=== PATIENT | female | born 1960 | race Caucasian/White ===

== ENCOUNTER 2019-02-06 14:31 | Emergency (ER) | payer MEDICAID, SELFPAY ==
[2019-02-06 14:37] VITALS: BP 133/74; PULSE 92; RESP 18; TEMP 36.8; O2SAT 97; BMI 40.5
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
[2019-02-06] MEDS: Diphth,Pertuss(Acell),Tet Vac 0.5 ML Vial IM (15:27)
[2019-02-06] MEDS: HYDROcodone Bitartrate/Apap 5/325 Tablet PO (15:27)
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
[2019-02-06] MEDS: morphine 10 MG/ML Syringe IM (15:57)
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
[2019-02-06 17:13] VITALS: RESP 16
[2019-02-06 17:14] VITALS: BP 118/74; PULSE 89; RESP 16; O2SAT 97
--- NOTE | 2019-02-06 17:15 | ED.RN ---
REVIEWED D/C INSTRUCTIONS, FOLLOW UP CARE, PRESCRIPTION, AND S/S THAT WOULD WARRANT A RETURN TO THE ED WITH PT. PT VERBALIZED AN UNDERSTANDING AND DENIES FURTHER QUESTIONS FOR THIS RN. PT SKIN P/W/D, RESP EVEN AND UNLABORED, PT A&O X 3, NO DISTRESS NOTED.
--- NOTE | 2019-02-06 18:00 | ED.RN ---
PT IN WITH PRIOR TO HIS TRANSFER TO [facility]. PT NOW NAUSEOUS AND VOMITING. DR. MARTINEZ AWARE AND ORDER RECEIVED FOR NAUSEA MEDICATION.
[2019-02-06] MEDS: Ondansetron 4 MG/2 ML Vial IM (18:06)
== END 2019-02-06 17:16 | disposition home or self-care (01) ==
PROVIDERS: Emergency Provider Emergency Medicine
DX: S62.307A Unspecified fracture of fifth metacarpal bone, left hand, initial encounter for closed fracture (principal); M20.012 Mallet finger of left finger(s); S50.312A Abrasion of left elbow, initial encounter; S50.812A Abrasion of left forearm, initial encounter; S30.811A Abrasion of abdominal wall, initial encounter; K21.9 Gastro-esophageal reflux disease without esophagitis; Z72.0 Tobacco use; Z79.899 Other long term (current) drug therapy; V28.5XXA Motorcycle passenger injured in noncollision transport accident in traffic accident, initial encounter; Y93.55 Activity, bike riding; Y92.410 Unspecified street and highway as the place of occurrence of the external cause; Y99.8 Other external cause status
CPT/HCPCS: 73130; 90471; 90715; 96372; 99284; J2405